=== PATIENT | male | born 1995 | race Caucasian/White ===

== ENCOUNTER 2020-05-17 18:55 | Emergency (ER) | payer OTHER, SELFPAY ==
--- NOTE | ~2020-05-17 | XR_ITS ---
EXAMINATION: XR chest 1V portable EXAM DATE: 05/17/2020 20:48 INDICATION: Cough, body aches, chills. Headache. TECHNIQUE: Portable AP frontal chest x-ray was obtained. There is no prior study for comparison. FINDINGS: The lungs are clear. There are no pleural effusions. The cardiomediastinal silhouette is within normal limits. There is no pneumothorax suspected. The bones and soft tissues are unremarkab le. IMPRESSION: No acute cardiopulmonary findings. Reviewed, dictated and finalized at location A.
[2020-05-17 19:09] VITALS: BP 111/85; PULSE 66; RESP 17; TEMP 36.4; O2SAT 100
--- NOTE | 2020-05-17 19:53 | ED.URI ---
HPI - URI/Sore Throat General Chief Complaint: Upper Respiratory Infection Stated Complaint: flu like sx Time Seen by Provider: 05/17/20 19:52 History of Present Illness HPI Narrative: 4 days of sore throat, bodyaches, headache, fatigue and malaise. His symptoms are improved with OTC flu medications. He talked to his employer and his PCP and they told him he needed to be tested for COVID-19. No SOB. Related Data Home Medications Medication Instructions Recorded Confirmed No Home Medications 05/17/20 05/17/20 Allergies Allergy/AdvReac Type Severity Reaction Status Date / Time No Known Allergies Allergy Verified 05/17/20 19:12 Review of Systems Review of Systems: All systems reviewed & are unremarkable except as noted in HPI and below Constitutional: Constitutional: Reports chills, Reports fatigue, Reports fever(s) and Reports weakness ENT: Denies dizziness and Reports sore throat Respiratory: Respiratory: Denies chest congestion, Reports cough and Reports dyspnea Gastrointestinal: Gastrointestinal: Reports nausea Musculoskeletal: Musculoskeletal: Reports back pain and Reports myalgias Integumentary/Breasts: Skin/Breast: Denies rash Neurologic: Reports weakness PMFSH Social History Social History Gender identity (if verbalized by the patient): Male Course Vital Signs Vital signs: Vital Signs Temperature 36.4 C L 05/17/20 19:09 Pulse Rate 66 05/17/20 19:09 Respiratory Rate 17 05/17/20 19:09 Blood Pressure 111/85 05/17/20 19:09 Pulse Oximetry 100 05/17/20 19:09 Temperature 36.4 C L 05/17/20 19:09 Pulse Rate 70 05/17/20 22:04 Respiratory Rate 18 05/17/20 22:04 Blood Pressure 120/78 05/17/20 22:04 Pulse Oximetry 99 05/17/20 22:04 MDM - URI/Sore Throat Differential Diagnosis Differential diagnosis: Likely upper respiratory infection, pharyngitis and other (COVID-19) Lab Data Attestation: I reviewed the patient's lab results. Labs: Lab Results 05/17/20 Range/Units 21:02 SARS-CoV-2 RNA (RT-PCR) Pending Strep Screen Presumptive Negative *(Reference Range: Negative)* Imaging Data Radiologist's impression: ITS Impressions Chest X-Ray 05/17/20 20:52 IMPRESSION: No acute cardiopulmonary findings. Discharge Plan Discharge Clinical Impression: Upper respiratory infection Patient Disposition: Home, Self-Care Condition: Stable Instructions: COVID-19: Slow the Coronavirus Spread (ED) Prescriptions: No Action No Home Medications RF: 0 Follow-up/Referrals: PHYSICIAN,DIECAST MACHINE OPERATOR [Primary Care Provider] - Discharge Date/Time: 05/17/20 22:06
[2020-05-17 22:04] VITALS: BP 120/78; PULSE 70; RESP 18; O2SAT 99
[2020-05-18 13:39] LABS: SARS-CoV-2 RNA PCR Negative
== END 2020-05-17 22:06 | disposition home or self-care (01) ==
PROVIDERS: Emergency Provider Emergency Medicine
DX: J06.9 Acute upper respiratory infection, unspecified (principal); Z20.828 Contact with and (suspected) exposure to other viral communicable diseases
CPT/HCPCS: 71045; 87081; 87635; 87880; 99283; C9803; U0003